=== PATIENT | female | born 1980 | race Two or more races ===

== ENCOUNTER 2019-01-15 12:33 | Emergency (ER) | payer MEDICAID ==
[~2019-01-15] VITALS: Ht 160 cm; Wt 58.2 kg
--- NOTE | 2019-01-15 13:10 | NUR ---
THIS IS A 39 YEAR OLD FEMALE WITH C/O SORE THROAT X1 DAY. SHE STATED THAT SHE WOKE UP THIS MORNING AND IT WAS PAINFUL TO SWALLOW. TONSILS SLIGHTLY SWOLLEN. RESPIRATIONS EVEN AND UNLABORED. DENIES COUGH, N/V. A&OX4 NO ACUTE DISTRESS NOTED AT THIS TIME. CALL LIGHT WITHIN REACH. WILL CONTINUE TO MONITOR PATIENT.
[2019-01-15] MEDS ORDERED: IBUPROFEN 800 MG TABLET ONE (13:56)
[2019-01-15] MEDS ORDERED: DEXAMETHASONE 4 MG TABLET ONE (13:57)
[2019-01-15] MEDS ORDERED: IBUPROFEN 800 MG TABLET PO ONE (14:00)
[2019-01-15] MEDS ORDERED: DEXAMETHASONE 4 MG TABLET PO ONE (14:00)
--- NOTE | 2019-01-15 14:02 | NUR ---
PATIENT MEDICATED WITH 10MG DECADRON AND 800MG MOTRIN.
[2019-01-15 14:19] VITALS: BP 91/52
== END 2019-01-15 14:21 | disposition home or self-care (01) ==
LOC: ED 14:00
DX: J02.0 Streptococcal pharyngitis (principal)
CPT/HCPCS: 99283